=== PATIENT | male | born 1960 | race Caucasian/White ===

== ENCOUNTER 2024-08-27 08:47 | Day surgery (SDC) | payer OTHER ==
[~2024-08-27 08:47] MED LIST: SODIUM CHLORIDE 0.9% 1,000 ML IV SCH
[2024-08-27 09:14] VITALS: TEMP 97.2
[2024-08-27] MEDS: SODIUM CHLORIDE 0.9% 500 ML 500 ML IV ONE (09:20)
[2024-08-27] MEDS: IV FLUID CONTINUATION 1,000 ML IV ONE (09:20)
[2024-08-27] MEDS: LIDOCAINE 1% (10MG/ML) FOR IV START INTRADERMA STA (09:20)
[2024-08-27] MEDS: BENZOCAINE SPRAY 1 EACH MUCOUS MEM STA (09:53)
[2024-08-27] MEDS ORDERED: LIDOCAINE 1% INJ 10MG/ML (20 ML MDV) ONE (10:00)
[2024-08-27] MEDS ORDERED: PROPOFOL 10 MG/ML 20 ML VIAL IV ONE (10:00)
[2024-08-27] MEDS: SODIUM CHLORIDE 0.9% 1,000 ML IV ONE (10:25)
--- NOTE | 2024-08-27 11:27 | ECHOT ---
TRANSESOPHAGEAL ECHOCARDIOGRAM INDICATION: To rule out intracardiac thrombus in a patient with persistent atrial fibrillation. PROCEDURE NOTE: After obtaining informed consent, transesophageal echocardiogram was performed in left lateral position using an Omniplane probe. Local and IV sedation were obtained by the automotive exhaust emissions technician. The patient tolerated the procedure well without any obvious immediate complications. FINDINGS: 1. There is no left atrial appendage thrombus. There is no thrombus within the left atrium, right atrium, right ventricle, or left ventricle. 2. Left ventricle has normal size and systolic function. 3. Mitral valve appears anatomically normal. There is mild central mitral regurgitation noted. 4. Aortic valve is a 3-leaflet valve. There is no evidence of aortic stenosis or regurgitation. Tricuspid valve appears normal. Aortic root appears normal. Interatrial septum, there is no evidence of qiae-ea-evoso shunt by color-flow Doppler or yoann-ra-natb shunt by agitated saline contrast study. CONCLUSIONS: No intracardiac thrombus. PLAN: The patient will undergo cardioversion. MMODL / IJN: [id number] /
[2024-08-27 11:32] VITALS: BP 112/63; PULSE 61; RESP 17
--- NOTE | 2024-08-28 08:15 | PCN ---
PROCEDURE NOTE PROCEDURE PERFORMED: Cardioversion. INDICATION: Persistent atrial fibrillation. PROCEDURE NOTE: After obtaining informed consent, the patient underwent electrical cardioversion with 150 joules of synchronized DC current, converted to sinus rhythm following a single shock. He is adequately anticoagulated with Eliquis, and intracardiac thrombus was ruled out by TIM. The patient will continue the Eliquis and will decrease the dose of metoprolol to 25 b.i.d. MMSARAHL / LAKESHAN: [id number] /
== END 2024-08-27 11:37 | disposition home or self-care (01) ==
LOC: OR 08:47
PROVIDERS: ATTEND Internal Medicine Cardiovascular Disease
DX: I48.19 Other persistent atrial fibrillation (principal); Z79.01 Long term (current) use of anticoagulants; I10 Essential (primary) hypertension; Z87.891 Personal history of nicotine dependence
CPT/HCPCS: 93312; 93320; 93325; 92960; J2003; J2704